=== PATIENT | female | born 1985 | race Caucasian/White ===

== ENCOUNTER 2019-10-12 17:13 | Emergency (ER) | payer MEDICAID, OTHER, SELFPAY ==
[~2019-10-12] VITALS: Ht 160 cm; Wt 68.0 kg
[2019-10-12] MEDS ORDERED: ONDANSETRON ODT 8 MG ONE (17:39)
[2019-10-12] MEDS ORDERED: ONDANSETRON ODT 8 MG PO ONE (18:00)
[2019-10-12 18:05] LABS: BASOPHILS % (AUTO) 0 % (0-1); EOSINOPHILS % (AUTO) 0 % (1-7); LYMPHOCYTES % (AUTO) 6 % (22-44); MD NO; MEAN CORPUSCULAR HEMOGLOBIN 28.8 pg (27.0-34.8); MEAN CORPUSCULAR HGB CONC 32.7 g/dL (32.4-35.8); MEAN CORPUSCULAR VOLUME 88.3 fL (80-100); MONOCYTES # (AUTO) 0.07 x10^3/uL (0.2-0.8); MONOCYTES % (AUTO) 1 % (2-9); NEUTROPHILS % (AUTO) 94 % (42-75); PLATELET COUNT 345 x10^3/uL (130-400); RED BLOOD COUNT 5.16 x10^6/uL (3.82-5.3); RED CELL DISTRIBUTION WIDTH 13.3 % (9.6-15.2)
[2019-10-12 18:12] LABS: ALANINE AMINOTRANSFERASE 25 U/L (12-78); ALBUMIN 4.4 g/dL (3.4-5.0); ANION GAP 6 mmol/L (5-15); CALCIUM 9.3 mg/dL (8.5-10.1); CHLORIDE 111 mmol/L (98-107); CREATININE 0.99 mg/dL (0.55-1.02)
--- NOTE | 2019-10-12 18:13 | NUR ---
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
--- NOTE | 2019-10-12 18:14 | NUR ---
Pt ambulates with steady gait and balance from lobby to room. NADN. No obvious defecits observed.
[2019-10-12 18:17] LABS: ALKALINE PHOSPHATASE 64 U/L (45-117); BILIRUBIN,TOTAL 0.4 mg/dL (0.2-1.0); TOTAL PROTEIN 8.2 g/dL (6.4-8.2)
--- NOTE | 2019-10-12 18:26 | NUR ---
Pt presents to ED with c/o N/V since 0600 today. Pt states, "I can't keep food or water down". Pt denies receiving flu shot this year. Pt ambulates with steady gait and balance to restroom with UA cup provided.
--- NOTE | 2019-10-12 18:45 | NUR ---
Pt back to room and connected to NIBP cuff, continous pulse ox, and classroom monitor. Call light within reach.
[2019-10-12] MEDS ORDERED: KETOROLAC 30 MG/1 ML ONE (18:46)
[2019-10-12] MEDS ORDERED: PROCHLORPERAZINE 5 MG/ML, 2ML ONE (18:46)
[2019-10-12] MEDS ORDERED: FAMOTIDINE 20 MG/2 ML ONE (18:46)
[2019-10-12 18:51] LABS: MICROSCOPIC NOT IND
--- NOTE | 2019-10-12 18:53 | NUR ---
Provided bedside report to MORGAN Wong. All questions answered. UA sent. PIV being established at this time. NADN. No other needs expressed.
[2019-10-12] MEDS ORDERED: PROCHLORPERAZINE 5 MG/ML, 2ML IVPush ONE (19:00)
[2019-10-12] MEDS ORDERED: FAMOTIDINE 20 MG/2 ML IVPush ONE (19:00)
[2019-10-12] MEDS ORDERED: PLEASE ENTER ALLERGIES MC SCH (19:00)
[2019-10-12] MEDS ORDERED: SODIUM CHLORIDE 0.9% 1,000ML IVBOLUS ONE (19:00)
[2019-10-12] MEDS ORDERED: KETOROLAC 30 MG/1 ML IVPush ONE (19:00)
[2019-10-12 19:03] LABS: CULTURE INDICATED? NO
[2019-10-12 19:45] VITALS: BP 127/91
== END 2019-10-12 20:09 | disposition home or self-care (01) ==
LOC: ED 19:30
DX: R11.2 Nausea with vomiting, unspecified (principal); R10.32 Left lower quadrant pain; R10.31 Right lower quadrant pain; E86.0 Dehydration; F12.10 Cannabis abuse, uncomplicated
CPT/HCPCS: 36415; 80053; 81003; 83690; 84703; 85025; 96361; 96365; 96374; 96375; 99283; J0780; J1885; J3490; J7030; Q0162